=== PATIENT | male | born 1995 | race Two or more races ===

== ENCOUNTER 2023-03-28 18:07 | Emergency (ER) | payer OTHER ==
[~2023-03-28] VITALS: Ht 167.6 cm; Wt 70.5 kg
[2023-03-28 19:53] LABS: BASOPHILS % (AUTO) 0.6 % (0.0-2.0); EOSINOPHILS % (AUTO) 1.1 % (1.0-6.0); HEMATOCRIT 46.5 % (41-53); HEMOGLOBIN 15.6 g/dL (13.5-17.5); LYMPHOCYTES # (AUTO) 1.7 K/uL (1.0-4.8); LYMPHOCYTES % (AUTO) 19.6 % (22.0-44.0); MEAN CORPUSCULAR HEMOGLOBIN 29.4 pg (26.0-34.0); MEAN CORPUSCULAR HGB CONC 33.6 G/dL (31.0-37.0); MEAN CORPUSCULAR VOLUME 87 fL (80-100); MONOCYTES # (AUTO) 1.1 K/uL (0.1-1.0); MONOCYTES % (AUTO) 12.1 % (2.0-9.0); NEUTROPHILS # (AUTO) 5.9 K/uL (1.8-7.7); NEUTROPHILS % (AUTO) 66.6 % (40.0-70.0); PLATELET COUNT (AUTO) 247 K/uL (150-450); RED BLOOD CELL COUNT(AUTO) 5.33 MIL/uL (4.50-5.90); RED CELL DISTRIBUTION WIDTH 13.5 % (11.5-14.5)
[2023-03-28 20:00] LABS: ANION GAP 5 mmol/L (8-16); CARBON DIOXIDE 28 mmol/L (22-29); CHLORIDE 101 mmol/L (98-107); CREATININE 0.76 mg/dL (0.60-1.30); GLOMERULAR FILTR. RATE CALC > 60 mL/min (>60); GLUCOSE,RANDOM 64 mg/dL (70-110); POTASSIUM 3.2 mmol/L (3.5-5.1); SODIUM SERUM 134 mmol/L (136-145)
[2023-03-28] MEDS ORDERED: SODIUM CHLORIDE 0.9% 100 ML ONE (20:12)
[2023-03-28] MEDS ORDERED: IOHEXOL 350 MG/ML 100 ML VIAL ONE (20:12)
[2023-03-28] MEDS ORDERED: BACITRACIN 28 GM OINTMENT TP ONE (21:45)
[2023-03-28 22:00] VITALS: BP 135/89; PULSE 79; RESP 14; TEMP 97.8
[2023-03-28 22:02] LABS: GLUCOMETER DEV NAME(LOC) ERT.5
== END 2023-03-28 23:07 ==
LOC: EDBD 18:13 → EMS 18:13
DX: L03.113 Cellulitis of right upper limb (principal); E11.9 Type 2 diabetes mellitus without complications
CPT/HCPCS: 99284; 73201; 80048; 82962; 85025; 36415; 82948; Q9967; J7050